=== PATIENT | female | born 1970 | race Caucasian/White ===

== ENCOUNTER 2016-07-07 07:38 | Day surgery (SDC) | payer OTHER ==
[2016-06-30 16:47] VITALS: BMI 20.9
[2016-07-07] MEDS ORDERED: TETRACAINE 0.5% OPHTH SOLN 2 ML BOTTLE ONE (09:27)
[2016-07-07] MEDS ORDERED: POVIDONE-IODINE 5% OPHTHALMIC PREP 30 ML SOLUTION ONE (09:27)
[2016-07-07] MEDS ORDERED: ACETAMINOPHEN 500 MG TABLET (FP) PO PRN (09:51)
[2016-07-07] MEDS ORDERED: ONDANSETRON 4 MG/2 ML VIAL ONE (09:52)
[2016-07-07] MEDS ORDERED: CLINDAMYCIN PHOSPHATE 600 MG/4 ML VIAL ONE (09:52)
[2016-07-07] MEDS ORDERED: PROPOFOL 20 ML ONE ×10 (09:53→12:10)
[2016-07-07] MEDS ORDERED: MIDAZOLAM HCL 2 MG/2 ML SINGLE DOSE VIAL ONE (09:53)
[2016-07-07] MEDS ORDERED: ceFAZolin SODIUM 1 GM VIAL ONE (09:55)
[2016-07-07] MEDS ORDERED: LACTATED RINGERS SOLUTION 1,000 ML IV SCH (12:45)
[2016-07-07] MEDS ORDERED: ONDANSETRON 4 MG/2 ML VIAL IVPUSH PRN (12:59)
[2016-07-07] MEDS ORDERED: oxyCODONE HCL 5 MG TABLET PO PRN (13:00)
[2016-07-07 13:36] VITALS: TEMP 98.3
[2016-07-07] MEDS ORDERED: oxyCODONE HCL 5 MG TABLET ONE (14:46)
[2016-07-07 16:16] VITALS: BP 114/74; PULSE 60
--- NOTE | 2016-07-08 09:26 | OP ---
DATE OF OPERATION: 07/07/2016 PREOPERATIVE DIAGNOSIS: Extensive defect following excision of basal cell carcinoma involving over 80% of the left lower lid, the left lateral canthus, and the lateral portion of the left upper lid. POSTOPERATIVE DIAGNOSIS: Extensive defect following excision of basal cell carcinoma involving over 80% of the left lower lid, the left lateral canthus, and the lateral portion of the left upper lid. PROCEDURE: 1. Examination under anesthesia. 2. Tarsoconjunctival graft from the entire left upper lid to the left lower lid. 3. Conjunctivoplasty of the left inferior fornix. 4. Lateral canthal tendon plication, left upper lid. 5. Full-thickness skin graft from the left posterior auricular region to the left lower lid. 6. Left lower canthoplasty. SURGEON: Tello Orellana MD ANESTHESIA: Local with sedation. COMPLICATIONS: None. ESTIMATED BLOOD LOSS: 5 to 10 mL. OPERATIVE REPORT: The patient was brought to the operating room, placed on the operating room table, vital signs were monitored by Anesthesia. The lid was examined. Approximately 80% of the eyelid was missing, including the lateral canthus and lateral portion of the upper lid. The patient, after intravenous sedation, was given injection in the upper lid and subconjunctival in the upper lid and this was the entire perimeter of the lower lid and nasal remnant and the lateral canthal tissues. The patient was prepped and draped in the usual fashion, exposing both eyes and the left ear, which was draped out. The 4-0 silk traction suture was passed through the central lid margin, lid was everted over a [place] retractor. The horizontal palpebral fissure on the right eye was determined to be 30 mm. The lower lid was examined, compared to the right eye, and the defect was then measured and found to be approximately 23 mm of missing eyelid, a shallow defect, but missing eyelid nonetheless. Therefore, a 23-mm tarsoconjunctival graft was marked after the left upper lid was everted, leaving 4 mm of intact tarsus along the upper lid margin. She had an unusual tarsus which was full height in the center but then rapidly tapered nasally and temporally, which did not allow for a 23-mm tarsoconjunctival graft to be harvested and so the ends of the tarsoconjunctival graft nasally and temporally wound up being more conjunctiva and some fibrous tissue rather than supported with full-thickness tarsus, unfortunately, due to the unusual contour of her tarsal plate, in order to maintain the integrity of the upper lid margin. This graft was incised with a No. 11 blade and then meticulously dissected, leaving intact as a tarsoconjunctival graft, where it rested nicely in the inferior fornix. The inferior conjunctiva was then from retractors and this was advanced superiorly, at which point the inferior conjunctiva was sutured to the inferior edge of the tarsoconjunctival graft with a running 6-0 chromic suture, being careful not to incorporate any of the bulbar conjunctiva. The nasal remnant of the eyelid was incised lateral to the punctum, creating a tarsal strip and this was sutured to the conjunctival and tarsal end of the tarsoconjunctival graft with 3 interrupted 6-0 Vicryl sutures, placing the tarsal set approximately the same level as the margin. Laterally, with tension on the graft, it could be sutured to the rim but the tension was felt to be excessive and therefore a periosteal flap was developed. The dissection was carried down to the lateral periosteum and a linear flap was then elevated with a [place] periosteal elevator lateral orbital rim and rotated inferonasally to meet the advanced tarsoconjunctival graft from the upper lid laterally where sutured with multiple interrupted 6-0 Vicryl sutures, completing the posterior anastomosis. The upper lid, which was partially missing laterally, was now reattached at the orbital rim with a lateral canthal tendon plication using double-armed 5-0 Vicryl sutures, bringing the upper lid to the lateral orbital rim. Lateral to this, the area where the periosteal flap had been developed in the lateral canthus was now closed to create a 30 mm horizontal palpebral fissure new canthus with a 5-0 chromic buried suture through the upper simmons line and lower skin muscle flap and the muscle lateral to this was closed with 5-0 chromic and the skin with interrupted 5-0 plain suture, completing the canthoplasty. The template was now placed in the defect of the lower lid and marked and then the skin graft was harvested behind the left ear. The ear was sutured to the pretragal region after local anesthesia was given to the helix in the pretragal area. A template was used to determine the size of the graft. This was marked in the postauricular . This area was then injected with 2% Xylocaine, 1:100,000 epinephrine, and it was harvested with a 15-blade and a Matos scissors. Hemostasis was obtained with Edmonson needle. After antibiotic irrigation, the donor site from the postauricular area was closed with running and interrupted 3-0 chromic suture in locking fashion. The helix sutures were removed. The graft was thinned of all subcutaneous tissue and pie-crusted and then with the thinnest postauricular skin oriented superiorly lid margin, this was then placed in the defect, tailored as necessary, and secured with running 6-0 chromic sutures, interrupted 6-0 chromic sutures, and running and interrupted 6-0 plain sutures inferiorly to recreate the shallow anterior defect. It would have been preferable to advance a skin or skin muscle flap from the lower lid up to the margin rather than place a skin graft but there was absolutely no laxity in the lower lid tissues, and any attempt to elevate the skin muscle would clearly have resulted in retraction or ectropion so a small skin graft was placed. Once the graft was sutured into position, a strip of Telfa and bacitracin were placed over the graft and in the eye and then a dental roll was tied over the graft site with the superior traction suture and an inferior 4-0 silk suture, creating gentle pressure on the graft eye patch and fluffs were then placed over the closed eye. Xeroform gauze were placed behind the ear and the patient was taken to the recovery room in stable condition. TELLO ORELLANA M.D. [id number]
== END 2016-07-07 15:50 | disposition home or self-care (01) ==
LOC: FASU 07:38
PROVIDERS: ATTEND Ophthalmology
PROC: 08BP0ZZ Excision of Left Upper Eyelid, Open Approach (ICD-10-PCS; 2016-07-07)
PROC: 08RTX7Z Replacement of Left Conjunctiva with Autologous Tissue Substitute, External Approach (ICD-10-PCS; 2016-07-07)
PROC: 08RRX7Z Replacement of Left Lower Eyelid with Autologous Tissue Substitute, External Approach (ICD-10-PCS; principal; 2016-07-07 10:11)
DX: C44.119 Basal cell carcinoma of skin of left eyelid, including canthus (principal); H02.89 Other specified disorders of eyelid
CPT/HCPCS: 94760